=== PATIENT | female | born 1990 | race Two or more races ===

== ENCOUNTER → 2020-05-07 | Emergency (ER) | payer OTHER ==
[~2020-05-07] VITALS: Ht 165.1 cm; Wt 63.5 kg
[~2020-05-07] MED LIST: ACETAMINOPHEN 325 MG TAB PO ONE
[2020-05-07 06:45] VITALS: BP 130/80
== END | disposition home or self-care (01) ==
LOC: EDBD 03:26 → ER 03:26
DX: S00.03XA Contusion of scalp, initial encounter (principal); S10.93XA Contusion of unspecified part of neck, initial encounter; Y04.2XXA Assault by strike against or bumped into by another person, initial encounter; Y93.89 Activity, other specified; Y92.89 Other specified places as the place of occurrence of the external cause; Y99.8 Other external cause status
CPT/HCPCS: 70450; 71045; 72125